=== PATIENT | female | born 1955 | race Caucasian/White ===

== ENCOUNTER → 2018-07-09 | Outpatient (CLI) | payer MEDICARE ==
--- NOTE | 2018-07-09 19:22 | MR ---
EXAMINATION TYPE: MR shoulder RT wo con DATE OF EXAM: 07/09/2018 COMPARISON: None HISTORY: Rt shoulder pain, limited ROM, x 1-2 years CONTRAST: None Multiplanar, multiecho imaging on a 3.0 Pretty magnet is performed through the shoulder. FINDINGS: Long head of the biceps tendon is within the sagittal groove. There is some fluid surroundi ng the distal tendon compatible some mild tendinosis. There is flattening of the tendon. The horizont al portion appears intact. Small joint effusion is present. There is fluid in the subacromial bursa and subdeltoid bursa. There is a 1.2 cm tear through the distal supraspinatus tendon no retraction is evident. Muscle signal appe ars normal. There is acromioclavicular junction hypertrophy. Some downward spurring is present which can contribu te to impingement syndrome. There is a downward sloping acromion which can also contribute to distal impingement syndrome. Glenoid labrum is poorly visualized. There are advanced osteoarthritic degenera tive change at the glenohumeral junction. Humeral head spurring is noted. IMPRESSIONS: 1. Partial tear supraspinatus tendon without tendon or muscle retraction. 2. 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 3. Downward sloping acromion and acromioclavicular junction hypertrophy which can contribute to impin gement syndrome.
== END | disposition home or self-care (01) ==
LOC: RADMRIMAIN 15:14
PROVIDERS: ATTEND Physical Medicine & Rehabilitation
DX: M75.111 Incomplete rotator cuff tear or rupture of right shoulder, not specified as traumatic (principal); M19.011 Primary osteoarthritis, right shoulder; M75.41 Impingement syndrome of right shoulder

== ENCOUNTER 2019-07-04 17:04 | Inpatient (IN) | payer MEDICARE ==
[2019-07-04] MEDS ORDERED: ACETAMINOPHEN TAB 325 MG TAB PO PRN (20:37)
[2019-07-04] MEDS ORDERED: ENALAPRILAT 1.25 MG/ML 1 ML VIAL IVP PRN (20:47)
[2019-07-04] MEDS: SODIUM CHLORIDE 0.9% 1,000 ML IV SCH (21:19)
[2019-07-04] MEDS: MORPHINE SULFATE 2 MG/ML SYRINGE IVP PRN (21:40)
[2019-07-04] MEDS ORDERED: Potassium Replacement Protocol 1 EACH MISC MISCELLANE PRN (23:24)
[2019-07-04] MEDS: AMPICILLIN-SULBACTAM 3 GM in SODIUM CHLORIDE 0.9% 100 ML IVPB SCH (23:42)
[2019-07-04] MEDS: POTASSIUM CHLORIDE ER 20 MEQ TAB.ER PO SCH (23:43)
[2019-07-04] MEDS: HEPARIN SODIUM,PORCINE 5,000 UNIT/ML 1 ML VIAL SQ SCH (23:43)
[2019-07-05] MEDS: HYDROcodone/APAP 10-325MG 1 EACH TAB PO PRN ×3 (00:15→17:00)
[2019-07-05] MEDS ORDERED: HYDROcodone/APAP 10-325MG 1 EACH TAB PO SCH (00:15)
[2019-07-05] MEDS: POTASSIUM CHLORIDE ER 20 MEQ TAB.ER PO SCH (00:51)
[2019-07-05] MEDS: MORPHINE SULFATE 2 MG/ML SYRINGE IVP PRN ×5 (03:05→23:35)
[2019-07-05 03:13] LABS: Basophils % (A) 0 %; Eosinophils # (A) 0.1 k/uL (0-0.7); Eosinophils % (A) 2 %; HCT 34.2 % (34.0-46.0); HGB 11.2 gm/dL (11.4-16.0); Lymphocytes # (A) 1.1 k/uL (1.0-4.8); Lymphocytes % (A) 21 %; MCH 32.7 pg (25.0-35.0); MCHC 32.8 g/dL (31.0-37.0); MCV 99.9 fL (80.0-100.0); Mean Platelet Volume 6.6; Monocytes # (A) 0.4 k/uL (0-1.0); Monocytes % (A) 8 %; Neutrophils # (A) 3.4 k/uL (1.3-7.7); Neutrophils % (A) 66 %; Platelet Count 217 k/uL (150-450); RBC 3.43 m/uL (3.80-5.40); RDW 13.6 % (11.5-15.5); WBC 5.2 k/uL (3.8-10.6)
[2019-07-05 03:20] LABS: ALT 178 U/L (9-52); AST 176 U/L (14-36); African American GFR (CKD) >90 (>60 ml/min/1.73 sqM); Albumin 3.6 g/dL (3.5-5.0); Alkaline Phosphatase 307 U/L (38-126); Anion Gap 6 mmol/L; Blood Urea Nitrogen 7 mg/dL (7-17); Carbon Dioxide 25 mmol/L (22-30); Chloride 108 mmol/L (98-107); Glucose 96 mg/dL (74-99); Potassium 4.1 mmol/L (3.5-5.1); Sodium 139 mmol/L (137-145); Total Bilirubin 1.4 mg/dL (0.2-1.3); Total Protein 6.1 g/dL (6.3-8.2)
[2019-07-05] MEDS: AMPICILLIN-SULBACTAM 3 GM in SODIUM CHLORIDE 0.9% 100 ML IVPB SCH ×4 (05:25→23:35)
[2019-07-05] MEDS: HEPARIN SODIUM,PORCINE 5,000 UNIT/ML 1 ML VIAL SQ SCH ×3 (07:26→23:36)
[2019-07-05] MEDS: PANTOPRAZOLE 40 MG TABLET PO SCH (07:41)
[2019-07-05] MEDS: SODIUM CHLORIDE 0.9% 1,000 ML IV SCH ×3 (07:43→23:37)
[2019-07-05] MEDS ORDERED: NON FORMULARY DRUG (Lansoprazole [Prevacid] 30 MG) PO SCH (09:00)
[2019-07-05 09:04] LABS: ALT 166 U/L (9-52); AST 135 U/L (14-36); African American GFR (CKD) >90 (>60 ml/min/1.73 sqM); Albumin 3.6 g/dL (3.5-5.0); Alkaline Phosphatase 291 U/L (38-126); Anion Gap 7 mmol/L; Blood Urea Nitrogen 6 mg/dL (7-17); Calcium 9.1 mg/dL (8.4-10.2); Carbon Dioxide 22 mmol/L (22-30); Chloride 111 mmol/L (98-107); Glucose 99 mg/dL (74-99); Sodium 140 mmol/L (137-145); Total Bilirubin 1.6 mg/dL (0.2-1.3); Total Protein 6.2 g/dL (6.3-8.2)
--- NOTE | 2019-07-05 12:27 | P.CONS ---
History of Present Illness - Reason for Consult Consult date: 07/05/19 Bile duct obstruction Requesting physician: Maximiliano Galeano - Chief Complaint Abdominal pain - History of Present Illness 64-year-old female with a past medical history of choledocholithiasis requiring ERCP 3-4 years ago outside facility transferred from [place] with symptoms of epigastric right upper quadrant abdominal pain indigestion nausea elevated liver enzymes. 3-4 years ago she was advised to follow up with the general surgeon she never did. Her symptoms have been intermittently ongoing since December but mostly related to reflux indigestion the symptoms of exacerbated over last few days with darker colored urine denies acholic stools. Reports 25 pound weight loss unintentionally over the last several months due to decreased appetite and/or indigestion when she eats. No history of hepatitis or known liver diseases. Denies alcoholism has a few beers 3-4 days a week. No history of IVDA. Liver enzymes prior to transfer total bilirubin 1.8. AST 267. ALT 213. AP 390. INR 0.9. White count 7.9. Hemoglobin 11.9. Platelet 231. Presently total bilirubin is 1.6. AST 135. ALT 166. AP 291. BUN 6. Creatinine 0.4. Afebrile. CT abdomen and pelvis from [place] reported a distended gallbladder with intrahepatic biliary dilatation CBD 1.9 cm with a distal CBD calculus. Review of Systems Constitutional: Denies fever, chills, sweats, weight gain, or loss. HEENT: Negative for migraines, blurred vision or loss, earaches, drainage, tinnitus, oral mucosal lesions, dysphagia, or odynophagia. CARDIAC: Negative for chest pain, arrhythmias, or palpitation. RESPIRATORY: Negative for shortness of breath, hemoptysis, cough, or sputum production. GI: See HPI for pertinent findings. : Negative for hematuria, urgency, frequency, polyuria, or dysuria. GYNc: Denies possibility of . Negative vaginal discharge. MUSCULOSKELETAL: Negative for muscle aches, swelling, arthritis, and arthralgias. NEUROLOGIC: Negative for stroke or TIA. ENDOCRINE: Negative for thyroid problems. SKIN: Negative for rash or itching. PSYCHIATRIC: Negative history for depression and anxiety Past Medical History Past Medical History: No Reported History Additional Past Medical History / Comment(s): arthritis, DDD, scolosis History of Any Multi-Drug Resistant Organisms: None Reported Past Surgical History: Orthopedic Surgery, Tonsillectomy, Tubal Ligation Additional Past Surgical History / Comment(s): colonoscopy, multiple bilat hand surgery, bilat knee surgery. Past Anesthesia/Blood Transfusion Reactions: No Reported Reaction Additional Past Anesthesia/Blood Transfusion Reaction / Comm: no blood transfusi ons Smoking Status: Current every day smoker Past Alcohol Use History: Occasional Additional Past Alcohol Use History / Comment(s): 1/2 ppd smoker - Past Family History Mother Additional Family Medical History / Comment(s): pt states that mother had heart stents Father Additional Family Medical History / Comment(s): esophageal CA Medications and Allergies Home Medications Medication Instructions Recorded Confirmed Type DULoxetine HCL [Cymbalta] 30 mg PO DAILY 07/04/19 07/04/19 History Diclofenac Sodium [Voltaren Gel] 1 applic TOPICAL QID PRN 07/04/19 07/04/19 History HYDROcodone/APAP 10-325MG [[place] 1 tab PO TID 07/04/19 07/04/19 History 10-325] Lansoprazole [Prevacid] 30 mg PO DAILY 07/04/19 07/04/19 History Multivitamins, Thera [Multivitamin 1 tab PO DAILY 07/04/19 07/04/19 History (formulary)] Allergies Allergy/AdvReac Type Severity Reaction Status Date / Time No Known Allergies Allergy Verified 07/04/19 21:06 Physical Exam Vitals: Vital Signs Temp Pulse Resp BP Pulse Ox 07/05/19 05:43 98.0 F 76 16 140/80 100 07/04/19 21:00 99.5 F 82 16 165/88 99 07/04/19 20:11 99.0 F 84 16 183/83 98 Intake and Output 07/04/19 07/05/19 07/05/19 22:59 06:59 14:59 Intake Total 590 1300 Balance 590 1300 Intake: Intake, IV Titration 1300 Amount Ampicillin-Sulbactam 3 gm 200 In Sodium Chloride 0.9% 100 ml @ 200 mls/hr IVPB Q6HR [facility] Rx#:[id number] Sodium Chloride 0.9% 1, 1100 000 ml @ 100 mls/hr IV . Q10H [facility] Rx#:[id number] Oral 590 Other: Voiding Method Toilet Toilet # Voids 1 2 Weight 56.415 kg General appearance: The patient is alert, oriented, in no acute distress. HET: Head is normocephalic and atraumatic. Pupils are equal and reactive. Oropharynx is clear without lesions. Neck: Supple without lymphadenopathy. Trachea midline. Heart: S1 S2. Regular rate and rhythm. Lungs: No crackles or wheezes are heard. Abdomen: Soft, mildly bloated tenderness midepigastrium right upper quadrant with bowel sounds. No peritoneal signs. No palpable organomegaly or masses. Extremities: Normal skin color and turgor. No cyanosis, rash, ulceration, clubbing, or edema. Radial and pedal pulses are 2/4 bilaterally. Neurological: No focal deficits. Strength and sensation are grossly intact. Results CBC & Chem 7: 07/05/19 02:55 07/05/19 08:30 Labs: Abnormal Lab Results - Last 24 Hours (Table) 07/05/19 07/05/19 Range/Units 02:55 02:55 RBC 3.43 L (3.80-5.40) m/uL Hgb 11.2 L (11.4-16.0) gm/dL Chloride 108 H (98-107) mmol/L Total Bilirubin 1.4 H (0.2-1.3) mg/dL AST 176 H (14-36) U/L ALT 178 H (9-52) U/L Alkaline Phosphatase 307 H (38-126) U/L Total Protein 6.1 L (6.3-8.2) g/dL CT scan - abdomen: report reviewed ([place] report reviewed by Dr. Mercer) Assessment and Plan (1) Elevated liver enzymes Narrative/Plan: Acute abdominal pain epigastric right upper quadrant nausea for several months exacerbated over last few days with elevated liver enzymes mild hyp erbilirubinemia CT imaging reporting a distal common bile duct calculus with intraventricular hepatic biliary dilatation with a history of choledocholithiasis 3-4 years ago requiring ERCP. Suspect recurrent choledocholithiasis. Current Visit: Yes Status: Acute Code(s): R74.8 - ABNORMAL LEVELS OF OTHER SERUM ENZYMES SNOMED Code(s): 232852089 (2) Bile duct calculus Current Visit: Yes Status: Acute Code(s): K80.50 - CALCULUS OF BILE DUCT W/O CHOLANGITIS OR CHOLECYST W/O OBST SNOMED Code(s): 36798095 Plan: 1. Nothing by mouth. 2. ERCP. 3. IV antibiotics. 4. General surgical consult recommended. 5. GI prophylaxis. Thank you for this kind referral and the opportunity to participate in the care of your patient. This consultation was discussed with Dr. Mercer. The impression and plan of care have been directed as dictated.
[2019-07-05] MEDS ORDERED: INDOMETHACIN 50MG SUPPOSITORY RECTAL ONE (13:00)
[2019-07-05] MEDS ORDERED: MIDAZOLAM 2 MG/2 ML VIAL ONE (13:49)
[2019-07-05] MEDS ORDERED: IV FLUID CONTINUATION 1,000 ML IV ONE (13:49)
[2019-07-05] MEDS ORDERED: KETAMINE 10 MG/ML 20 ML VIAL ONE (13:49)
[2019-07-05] MEDS ORDERED: GLYCOPYRROLATE 0.2 MG/ML 2 ML VIAL ONE (13:49)
[2019-07-05] MEDS ORDERED: LABETALOL 5 MG/ML VIAL MDV ONE (13:49)
[2019-07-05] MEDS ORDERED: PROPOFOL 10 MG/ML 20 ML VIAL IV ONE (13:49)
[2019-07-05] MEDS ORDERED: IOPAMIDOL-300 50ML BTL MISCELLANE ONE (14:09)
[2019-07-05] MEDS ORDERED: SODIUM CHLORIDE 0.9% 500 ML 500 ML IV ONE (14:25)
--- NOTE | 2019-07-05 14:59 | P.PCN ---
Date of Procedure: 07/05/19 Procedure(s) Performed: Brief history: Patient is a 64 year-old pleasant lady scheduled for an ERCP as part of evaluation of abdominal pain and elevated serum transaminases for the last 2 days' duration. She had CT of the abdomen and pelvis done that showed dilated common bile duct with choledocholithiasis. Procedure performed: ERCP with biliary sphincterotomy, balloon stone extraction, CBD stent placement Preoperative diagnoses: Abdominal pain/elevated LFTs and CBD stones IV sedation per anesthesia: Procedure: After informed consent was obtained from the patient and after the risks benefits and complications including bleeding perforation and pancreatitis explained in detail the patient was brought into the endoscopy unit. The patient was placed in prone position and IV conscious sedation was administered by anesthesia under continuous monitoring. The Olympus side-viewing duodenoscope was then inserted into the mouth and esophagus intubated without any difficulty. The scope was gradually advanced into the stomach and duodenum. The major papilla was identified without any difficulty. Initial cannulation resultedin case of the common bile duct. Upon injection of the dye, the duct was dilated measuring at least 1.5 cm in diameter. There were at least 3 stones that were seen in the distal common bile duct the largest of which measured about 1-1.5 cm. At this time a biliary stent enterotomy was performed over the guidewire and was extended to 1 cm. Following this 11 mm balloon was passed over the guidewire into the proximal CBD and gently withdrawn at least 3 stones were extracted without any difficulty. At this time an occlusion cholangiogram was performed. There was a large stone that was seen in the proximal CBD and a gently maneuvered the balloon to the proximal CBD over the guidewire and inflated and withdrawn. Despite multiple attempts I was not able to extract the stone. Tried for more than half an hour at this time I decided to place a CBD stent. A 7-Mong[place], 5 cm pigtail stent was placed into the proximal CBD with good drainage of the pain. Patient tolerated the procedure well. The pancreatic duct was intentionally not cannulated during the entire procedure Impression: Dilated common bile duct with multiple CBD stones largest of which measuring 1.5 cm in size, status post biliary sphincterotomy and balloon stone extraction. At least 3 stones were extracted but the largest stone which was 1.5 cm in diameter could not be extracted despite multiple attempts. Status post CBD stent placement as described Pancreatic duct intentionally not cannulated Recommendations: The findings of this examination were discussed with the patient as well as a family. We'll start her on clear liquid diet. Repeat labs in the morning. If she is doing well she can be discharged home and will make arrangements for her to have a repeat ERCP for CBD stone extraction at [facility] in the next few weeks. She can have gallbladder surgery after the CBD stones extracted.
--- NOTE | 2019-07-05 15:04 | FL ---
Fluoroscopy History: ERCP, stones ERCP Stones, 48 sec fluoro time, 3 paper films. Sylvie
--- NOTE | 2019-07-05 16:44 | P.GSCN ---
History of Present Illness Consult date: 07/05/19 Reason for Consult: Choledocholithiasis History of present illness: 64-year-old female went to [facility] with right upper quadrant pain. Was found to have elevated liver enzymes. Patient previously had choledocholithiasis but did not follow through with surgical evaluation. Patient had CAT scan performed which showed a distended gallbladder with a distal CBD stone. Patient underwent ERCP today. Stones were removed however t he large stone was impacted. A stent was placed. Feeling well currently. Review of Systems The patient denies any acute changes in vision or hearing, no dysphagia or odyn ophagia, no chest pain or shortness of breath, no dysuria or hematuria, no headache, no runny nose, no rectal bleeding or melena, no unexplained weight loss Past Medical History Past Medical History: No Reported History Additional Past Medical History / Comment(s): arthritis, DDD, scolosis History of Any Multi-Drug Resistant Organisms: None Reported Past Surgical History: Orthopedic Surgery, Tonsillectomy, Tubal Ligation Additional Past Surgical History / Comment(s): colonoscopy, multiple bilat hand surgery, bilat knee surgery. Past Anesthesia/Blood Transfusion Reactions: No Reported Reaction Additional Past Anesthesia/Blood Transfusion Reaction / Comm: no blood transfusions Smoking Status: Current every day smoker Past Alcohol Use History: Occasional Additional Past Alcohol Use History / Comment(s): 1/2 ppd smoker - Past Family History Mother Additional Family Medical History / Comment(s): pt states that mother had heart stents Father Additional Family Medical History / Comment(s): esophageal CA Medications and Allergies Home Medications Medication Instructions Recorded Confirmed Type DULoxetine HCL [Cymbalta] 30 mg PO DAILY 07/04/19 07/04/19 History Diclofenac Sodium [Voltaren Gel] 1 applic TOPICAL QID PRN 07/04/19 07/04/19 History HYDROcodone/APAP 10-325MG [[place] 1 tab PO TID 07/04/19 07/04/19 History 10-325] Lansoprazole [Prevacid] 30 mg PO DAILY 07/04/19 07/04/19 History Multivitamins, Thera [Multivitamin 1 tab PO DAILY 07/04/19 07/04/19 History (formulary)] Allergies Allergy/AdvReac Type Severity Reaction Status Date / Time No Known Allergies Allergy Verified 07/04/19 21:06 Surgical - Exam Vital Signs Temp Pulse Resp BP Pulse Ox 99.0 F 84 16 183/83 98 07/04/19 20:11 07/04/19 20:11 07/04/19 20:11 07/04/19 20:11 07/04/19 20:11 Physical exam: General: Well-developed, well-nourished HEENT: Normocephalic, sclerae icteric Abdomen: Nontender, nondistended Extremities: No edema Neuro: Alert and oriented Results - Labs 07/05/19 02:55 07/05/19 08:30 Abnormal Lab Results - Last 24 Hours (Table) 07/05/19 07/05/19 07/05/19 Range/Units 02:55 02:55 08:30 RBC 3.43 L (3.80-5.40) m/uL Hgb 11.2 L (11.4-16.0) gm/dL Chloride 108 H 111 H (98-107) mmol/L BUN 6 L (7-17) mg/dL Creatinine 0.49 L (0.52-1.04) mg/dL Total Bilirubin 1.4 H 1.6 H (0.2-1.3) mg/dL AST 176 H 135 H (14-36) U/L ALT 178 H 166 H (9-52) U/L Alkaline Phosphatase 307 H 291 H (38-126) U/L Total Protein 6.1 L 6.2 L (6.3-8.2) g/dL Diabetes panel 07/05/19 07/05/19 Range/Units 02:55 08:30 Sodium 139 140 (137-145) mmol/L Potassium 4.1 4.0 (3.5-5.1) mmol/L Chloride 108 H 111 H (98-107) mmol/L Carbon Dioxide 25 22 (22-30) mmol/L BUN 7 6 L (7-17) mg/dL Creatinine 0.56 0.49 L (0.52-1.04) mg/dL Glucose 96 99 (74-99) mg/dL Calcium 9.0 9.1 (8.4-10.2) mg/dL AST 176 H 135 H (14-36) U/L ALT 178 H 166 H (9-52) U/L Alkaline Phosphatase 307 H 291 H (38-126) U/L Total Protein 6.1 L 6.2 L (6.3-8.2) g/dL Albumin 3.6 3.6 (3.5-5.0) g/dL Calcium panel 07/05/19 07/05/19 Range/Units 02:55 08:30 Calcium 9.0 9.1 (8.4-10.2) mg/dL Albumin 3.6 3.6 (3.5-5.0) g/dL Pituitary panel 07/05/19 07/05/19 Range/Units 02:55 08:30 Sodium 139 140 (137-145) mmol/L Potassium 4.1 4.0 (3.5-5.1) mmol/L Chloride 108 H 111 H (98-107) mmol/L Carbon Dioxide 25 22 (22-30) mmol/L BUN 7 6 L (7-17) mg/dL Creatinine 0.56 0.49 L (0.52-1.04) mg/dL Glucose 96 99 (74-99) mg/dL Calcium 9.0 9.1 (8.4-10.2) mg/dL Adrenal panel 07/05/19 07/05/19 Range/Units 02:55 08:30 Sodium 139 140 (137-145) mmol/L Potassium 4.1 4.0 (3.5-5.1) mmol/L Chloride 108 H 111 H (98-107) mmol/L Carbon Dioxide 25 22 (22-30) mmol/L BUN 7 6 L (7-17) mg/dL Creatinine 0.56 0.49 L (0.52-1.04) mg/dL Glucose 96 99 (74-99) mg/dL Calcium 9.0 9.1 (8.4-10.2) mg/dL Total Bilirubin 1.4 H 1.6 H (0.2-1.3) mg/dL AST 176 H 135 H (14-36) U/L ALT 178 H 166 H (9-52) U/L Alkaline Phosphatase 307 H 291 H (38-126) U/L Total Protein 6.1 L 6.2 L (6.3-8.2) g/dL Albumin 3.6 3.6 (3.5-5.0) g/dL Assessment and Plan (1) Bile duct calculus Narrative/Plan: Agree with plans for tertiary care repeat ERCP with stone extraction. Possible discharge tomorrow. We'll follow. Current Visit: Yes Status: Acute Code(s): K80.50 - CALCULUS OF BILE DUCT W/O CHOLANGITIS OR CHOLECYST W/O OBST SNOMED Code(s): 57548709
[2019-07-05 21:46] VITALS: RESP 16
--- NOTE | 2019-07-05 22:39 | P.HPIM ---
History of Present Illness H&P Date: 07/05/19 Chief Complaint: Abdominal pain Patient is a 68-year-old female with a known history of cholelithiasis, degenerative joint disease, ongoing nicotine addiction was initially presented to [facility] with complaints of right upper quadrant abdominal pain and back pain. Patient had CT of the abdominal pelvis showed distended gallbladder with extra hepatic biliary ductal dilation, CBD 1.9 cm with a large calculus. Patient was eventually transferred to [facility] for further evaluation by GI. Patient had history of choledocholithiasis 3-4 years ago. Patient has been having ongoing symptoms since December this year. No fever no chills. Patient does have nausea. No excessive vomiting. Over the last 2 days patient has been having dark-colored urine. Patient has decreased appetite as well. AST 267, ALT 213, was 390 and INR 0.9, WBC 7.9 able to 11.9, platelets 231 and bilirubin level currently is 1.6. Review of Systems Constitutional: Patient denies any fever or chills . No generalized weakness or weight loss. Abdomen: Patient does have nausea. No vomiting. Right upper quadrant abdominal pain and back pain.. Cardiovascular: Patient denies any chest pain or short of breath no palpit ations. Respiratory: patient denied any cough is from production. No shortness of breath Neurologic: Patient denied any numbness or tingling headache. Musculoskeletal: Patient denies any complaints of joint swelling or deformity. Skin: Negative Psychiatric: Negative Endocrine: No heat or cold intolerance. No recent weight gain. Genitourinary: No dysuria or hematuria. All other 14 point ROS negative except the above Past Medical History Past Medical History: No Reported History Additional Past Medical History / Comment(s): arthritis, DDD, scolosis History of Any Multi-Drug Resistant Organisms: None Reported Past Surgical History: Orthopedic Surgery, Tonsillectomy, Tubal Ligation Additional Past Surgical History / Comment(s): colonoscopy, multiple bilat hand surgery, bilat knee surgery. Past Anesthesia/Blood Transfusion Reactions: No Reported Reaction Additional Past Anesthesia/Blood Transfusion Reaction / Comment(s): no blood transfusions Smoking Status: Current every day smoker Past Alcohol Use History: Occasional Additional Past Alcohol Use History / Comment(s): 1/2 ppd smoker - Past Family History Mother Additional Family Medical History / Comment(s): pt states that mother had heart stents Father Additional Family Medical History / Comment(s): esophageal CA Medications and Allergies Home Medications Medication Instructions Recorded Confirmed Type DULoxetine HCL [Cymbalta] 30 mg PO DAILY 07/04/19 07/04/19 History Diclofenac Sodium [Voltaren Gel] 1 applic TOPICAL QID PRN 07/04/19 07/04/19 History HYDROcodone/APAP 10-325MG [[place] 1 tab PO TID 07/04/19 07/04/19 History 10-325] Lansoprazole [Prevacid] 30 mg PO DAILY 07/04/19 07/04/19 History Multivitamins, Thera [Multivitamin 1 tab PO DAILY 07/04/19 07/04/19 History (formulary)] Allergies Allergy/AdvReac Type Severity Reaction Status Date / Time No Known Allergies Allergy Verified 07/04/19 21:06 Physical Exam Vitals: Vital Signs Temp Pulse Resp BP Pulse Ox 07/05/19 09:56 98 F 76 16 140/80 100 07/05/19 05:43 98.0 F 76 16 140/80 100 07/04/19 21:00 99.5 F 82 16 165/88 99 07/04/19 20:11 99.0 F 84 16 183/83 98 Intake and Output 07/04/19 07/05/19 07/05/19 22:59 06:59 14:59 Intake Total 590 1300 Balance 590 1300 Intake: Intake, IV Titration 1300 Amount Ampicillin-Sulbactam 3 gm 200 In Sodium Chloride 0.9% 100 ml @ 200 mls/hr IVPB Q6HR RJ Rx#:[id number] Sodium Chloride 0.9% 1, 1100 000 ml @ 100 mls/hr IV . Q10H [facility] Rx#:[id number] Oral 590 Other: Voiding Method Toilet Toilet # Voids 1 2 Weight 56.415 kg PHYSICAL EXAMINATION: Patient is lying in the bed comfortably, no acute distress, awake alert and oriented.. HEENT: Normocephalic. Neck is supple. Pupils reactive. Nostrils clear. Oral cavity is moist. Ears reveal no drainage. Neck reveals no JVD, carotid bruits, or thyromegaly. CHEST EXAMINATION: Trachea is central. Symmetrical expansion. Lung escobedo clear to auscultation and percussion. CARDIAC: Normal S1, S2 with no gallops. No murmurs ABDOMEN: Soft. Bowel sounds normal. No organomegaly. No abdominal bruits. Extremities: reveal no edema. No clubbing or cyanosis Neurologically awake, alert, oriented x3 with well-coordinated movements. No focal deficits noted Skin: No rash or skin lesions. Psychiatric: Coperative. Nonsuicidal Musculoskeletal: No joint swelling or deformity. Normal range of motion. Results CBC & Chem 7: 07/05/19 02:55 07/05/19 08:30 Labs: Abnormal Lab Results - Last 24 Hours (Table) 07/05/19 07/05/19 07/05/19 Range/Units 02:55 02:55 08:30 RBC 3.43 L (3.80-5.40) m/uL Hgb 11.2 L (11.4-16.0) gm/dL Chloride 108 H 111 H (98-107) mmol/L BUN 6 L (7-17) mg/dL Creatinine 0.49 L (0.52-1.04) mg/dL Total Bilirubin 1.4 H 1.6 H (0.2-1.3) mg/dL AST 176 H 135 H (14-36) U/L ALT 178 H 166 H (9-52) U/L Alkaline Phosphatase 307 H 291 H (38-126) U/L Total Protein 6.1 L 6.2 L (6.3-8.2) g/dL Thrombosis Risk Factor Assmnt - DVT/VTE Prophylaxis DVT/VTE Prophylaxis: Pharmacologic Prophylaxis ordered - Choose All That Apply Any of the Below Risk Factors Present?: Yes Each Factor Represents 1 point: Varicose veins Other Risk Factors: Yes Each Risk Factor Represents 2 Points: Age 61-74 years Thrombosis Risk Factor Assessment Total Risk Factor Score: 3 Thrombosis Risk Factor Assessment Level: Moderate Risk Assessment and Plan Assessment: Hepatic biliary ductal dilatation/choledocholithiasis Abdominal pain Elevated liver enzymes and mild hyperbilirubinemia History of choledocholithiasis Degenerative joint disease Scoliosis Ongoing nicotine addiction History of gallstones. No follow-up with general surgery. Plan: Patient will be continued on IV hydration. Nothing by mouth. General surgery is was consulted. GI is planning for ERCP today. Further recommendations based on the clinical course. Prognosis is guarded. Smoking cessation has been counseled. Time with Patient: Greater than 30
[2019-07-06] MEDS: HYDROcodone/APAP 10-325MG 1 EACH TAB PO PRN ×3 (02:17→18:35)
[2019-07-06] MEDS: MORPHINE SULFATE 2 MG/ML SYRINGE IVP PRN ×5 (03:39→20:53)
[2019-07-06] MEDS: AMPICILLIN-SULBACTAM 3 GM in SODIUM CHLORIDE 0.9% 100 ML IVPB SCH ×3 (05:28→16:55)
[2019-07-06] MEDS: HEPARIN SODIUM,PORCINE 5,000 UNIT/ML 1 ML VIAL SQ SCH ×2 (08:17→16:59)
[2019-07-06] MEDS: PANTOPRAZOLE 40 MG TABLET PO SCH (08:18)
[2019-07-06 08:44] LABS: Basophils % (A) 0 %; Eosinophils # (A) 0.1 k/uL (0-0.7); Eosinophils % (A) 2 %; HCT 34.1 % (34.0-46.0); HGB 10.9 gm/dL (11.4-16.0); Lymphocytes # (A) 0.9 k/uL (1.0-4.8); Lymphocytes % (A) 26 %; MCH 32.5 pg (25.0-35.0); MCV 101.5 fL (80.0-100.0); Macrocytosis Slight; Mean Platelet Volume 7.1; Monocytes # (A) 0.3 k/uL (0-1.0); Monocytes % (A) 8 %; Neutrophils # (A) 2.2 k/uL (1.3-7.7); Neutrophils % (A) 61 %; Platelet Count 189 k/uL (150-450); RBC 3.36 m/uL (3.80-5.40); RDW 13.3 % (11.5-15.5); WBC 3.6 k/uL (3.8-10.6)
[2019-07-06 09:01] LABS: ALT 117 U/L (9-52); AST 55 U/L (14-36); African American GFR (CKD) >90 (>60 ml/min/1.73 sqM); Albumin 3.4 g/dL (3.5-5.0); Alkaline Phosphatase 232 U/L (38-126); Anion Gap 8 mmol/L; Blood Urea Nitrogen 4 mg/dL (7-17); Calcium 8.9 mg/dL (8.4-10.2); Carbon Dioxide 25 mmol/L (22-30); Chloride 106 mmol/L (98-107); Glucose 166 mg/dL (74-99); Potassium 3.4 mmol/L (3.5-5.1); Sodium 139 mmol/L (137-145); Total Bilirubin 0.9 mg/dL (0.2-1.3)
--- NOTE | 2019-07-06 09:41 | P.PN ---
Subjective Progress Note Date: 07/06/19 Principal diagnosis: Choledocholithiasis Patient doing well today. Pain is improved. All of her liver enzymes are improved as well. Tolerating diet. Objective - Vital Signs Vital signs: Vital Signs Temp 98.5 F 07/06/19 05:00 Pulse 71 07/06/19 05:00 Resp 16 07/06/19 05:00 BP 132/69 07/06/19 05:00 Pulse Ox 98 07/06/19 05:00 Intake & Output 07/05/19 07/06/19 07/06/19 18:59 06:59 18:59 Intake Total 1300 1840 Balance 1300 1840 Intake: IV 500 Intake, IV Titration 800 1000 Amount Ampicillin-Sulbactam 3 gm 100 In Sodium Chloride 0.9% 100 ml @ 200 mls/hr IVPB Q6HR RJ Rx#:[id number] Sodium Chloride 0.9% 1, 700 1000 000 ml @ 100 mls/hr IV . Q10H RJ Rx#:[id number] Oral 840 Other: Voiding Method Toilet Toilet # Voids 1 - Exam Abdomen: Soft, nondistended, mild epigastric tenderness - Labs CBC & Chem 7: 07/06/19 08:21 07/06/19 08:21 Labs: Abnormal Lab Results - Last 24 Hours (Table) 07/06/19 07/06/19 Range/Units 08:21 08:21 WBC 3.6 L (3.8-10.6) k/uL RBC 3.36 L (3.80-5.40) m/uL Hgb 10.9 L (11.4-16.0) gm/dL MCV 101.5 H (80.0-100.0) fL Lymphocytes # 0.9 L (1.0-4.8) k/uL Potassium 3.4 L (3.5-5.1) mmol/L BUN 4 L (7-17) mg/dL Glucose 166 H (74-99) mg/dL AST 55 H (14-36) U/L ALT 117 H (9-52) U/L Alkaline Phosphatase 232 H (38-126) U/L Total Protein 6.0 L (6.3-8.2) g/dL Albumin 3.4 L (3.5-5.0) g/dL Assessment and Plan (1) Bile duct calculus Narrative/Plan: Patient doing well. Continue advancing diet. May discharge. Outpatient follow-up at [facility]. Follow-up with myself for definitive cholecystectomy following that. Current Visit: Yes Status: Acute Code(s): K80.50 - CALCULUS OF BILE DUCT W/O CHOLANGITIS OR CHOLECYST W/O OBST SNOMED Code(s): 59797632
[2019-07-06 10:03] LABS: Amylase 110 U/L (30-110)
[2019-07-06] MEDS: POTASSIUM CHLORIDE ER 20 MEQ TAB.ER PO SCH ×2 (10:45→12:11)
[2019-07-06] MEDS: SODIUM CHLORIDE 0.9% 1,000 ML IV SCH ×2 (12:11→23:23)
--- NOTE | 2019-07-06 14:07 | PN ---
PROGRESS NOTE DATE OF SERVICE: 07/06/2019 The patient is a 64-year-old pleasant white female admitted to the hospital with abdominal pain and elevated LFTs and jaundice. CT of the abdomen showed CBD stone. She underwent an ERCP with biliary sphincterotomy and balloon stone extraction as well as CBD stent placement. The ERCP revealed multiple CBD stones, most of which were removed, but there was a large 1.5 cm stone that could not be removed and, hence, a biliary stent was placed. The patient is doing much better this morning. She still has some epigastric discomfort, some nausea and vomiting. PHYSICAL EXAMINATION: Appears comfortable, no apparent distress. VITAL SIGNS: Stable. Blood pressure is 132/69, pulse is 71, temperature 98.5. HEENT: Unremarkable. Conjunctivae pink. Sclerae anicteric. Oral cavity, no lesions. NECK: No JVD. No lymph node enlargement. CHEST: Clear to auscultation. HEART: Regular rate and rhythm. ABDOMEN: Soft. Bowel sounds are positive. No organomegaly. EXTREMITIES: No pedal edema. SKIN: No rashes. NEUROLOGIC: Alert and oriented x3. No focal deficits. LABS: Done from today, bilirubin is down to 0.9, AST 117, ALT 55, alkaline phosphatase 232, lipase is 622 and amylase is 110. WBC 3.6, hemoglobin 10.9. IMPRESSION: 1. Choledocholithiasis, status post ERCP with biliary sphincterotomy, balloon stone extraction and CBD stent placement as one of the large stones could not be extracted. Several small stones were extracted. 2. Gallstones for which Dr. Wall is following the patient. 3. Mild elevation of lipase consistent with mild pancreatitis, possibly post ERCP related. RECOMMENDATIONS: 1. Continue with a clear liquid diet. 2. Continue with broad-spectrum antibiotics. 3. Advance diet gradually. 4. If symptoms improve, she can be discharged home tomorrow with outpatient followup in 2 weeks. I had a lengthy discussion with the patient as well as the family who were at the bedside that we will plan on sending her to [facility] for a CBD stone extraction in 2-3 weeks following which she can have gallbladder surgery done. Thank you for this consultation. MMODL / IJN: [id number] /
--- NOTE | 2019-07-06 23:12 | P.PN ---
Subjective Progress Note Date: 07/06/19 Principal diagnosis: Choledocholithiasis status post ERCP and stone extraction Patient is a 68-year-old female with a known history of cholelithiasis, degenerative joint disease, ongoing nicotine addiction was initially presented to [facility] with complaints of right upper quadrant abdominal pain and back pain. Patient had CT of the abdominal pelvis showed distended gallbladder with extra hepatic biliary ductal dilation, CBD 1.9 cm with a large calculus. Patient was eventually transferred to [facility] for further evaluation by GI. Patient had history of choledocholithiasis 3-4 years ago. Patient has been having ongoing symptoms since December this year. No fever no chills. Patient does have nausea. No excessive vomiting. Over the last 2 days patient has been having dark-colored urine. Patient has decreased appetite as well. AST 267, ALT 213, was 390 and INR 0.9, WBC 7.9 able to 11.9, platelets 231 and bilirubin level currently is 1.6. 07/06/2019 Patient had ERCP done yesterday with sphincterotomy and stone extraction. There is still one large stone left. Patient was recommended to follow with outpatient for repeat ERCP. Otherwise patient is still complaining of abdominal pain today. Liver enzymes are trending down. Lipase level is elevated to 600. No fever no chills. No nausea vomiting. No chest pain or shortness of breath. No headache or dizziness or lightheadedness. Patient is able to ambulate in the hallway. Current medications reviewed. Objective - Vital Signs Vital signs: Vital Signs Temp 97.9 F 07/06/19 12:21 Pulse 67 07/06/19 12:21 Resp 16 07/06/19 12:21 BP 167/81 07/06/19 12:21 Pulse Ox 99 07/06/19 12:21 Intake & Output 07/05/19 07/06/19 07/06/19 18:59 06:59 18:59 Intake Total 1300 1840 900 Balance 1300 1840 900 Intake: IV 500 Intake, IV Titration 800 1000 900 Amount Ampicillin-Sulbactam 3 gm 100 100 In Sodium Chloride 0.9% 100 ml @ 200 mls/hr IVPB Q6HR RJ Rx#:[id number] Sodium Chloride 0.9% 1, 700 1000 800 000 ml @ 100 mls/hr IV . Q10H RJ Rx#:[id number] Oral 840 Other: Voiding Method Toilet Toilet Toilet # Voids 1 - Exam PHYSICAL EXAMINATION: Patient is lying in the bed comfortably, no acute distress, awake alert and oriented.. HEENT: Normocephalic. Neck is supple. Pupils reactive. Nostrils clear. Oral cavity is moist. Ears reveal no drainage. Neck reveals no JVD, carotid bruits, or thyromegaly. CHEST EXAMINATION: Trachea is central. Symmetrical expansion. Lung escobedo clear to auscultation and percussion. CARDIAC: Normal S1, S2 with no gallops. No murmurs ABDOMEN: Soft. Mild epigastric tenderness. Bowel sounds normal. No organomegaly. No abdominal bruits. Extremities: reveal no edema. No clubbing or cyanosis Neurologically awake, alert, oriented x3 with well-coordinated movements. No focal deficits noted Skin: No rash or skin lesions. Psychiatric: Coperative. Nonsuicidal Musculoskeletal: No joint swelling or deformity. Normal range of motion. - Labs CBC & Chem 7: 07/06/19 08:21 07/06/19 08:21 Labs: Abnormal Lab Results - Last 24 Hours (Table) 07/06/19 07/06/19 07/06/19 Range/Units 08:21 08:21 08:21 WBC 3.6 L (3.8-10.6) k/uL RBC 3.36 L (3.80-5.40) m/uL Hgb 10.9 L (11.4-16.0) gm/dL MCV 101.5 H (80.0-100.0) fL Lymphocytes # 0.9 L (1.0-4.8) k/uL Potassium 3.4 L (3.5-5.1) mmol/L BUN 4 L (7-17) mg/dL Glucose 166 H (74-99) mg/dL AST 55 H (14-36) U/L ALT 117 H (9-52) U/L Alkaline Phosphatase 232 H (38-126) U/L Total Protein 6.0 L (6.3-8.2) g/dL Albumin 3.4 L (3.5-5.0) g/dL Lipase 627 H (23-300) U/L Assessment and Plan Assessment: Hepatic biliary ductal dilatation/choledocholithiasis. Status post ERCP Mild acute pancreatitis Abdominal pain Elevated liver enzymes and mild hyperbilirubinemia History of choledocholithiasis Degenerative joint disease Scoliosis Ongoing nicotine addiction History of gallstones. No follow-up with general surgery. Plan: Patient will be continued on IV hydration. Empiric antibiotics. GI is following. Monitor liver enzymes and lipase level.. Further recommendations based on the clinical course. Prognosis is guarded. Smoking cessation has been counseled. Time with Patient: Greater than 30
[2019-07-07] MEDS: HEPARIN SODIUM,PORCINE 5,000 UNIT/ML 1 ML VIAL SQ SCH ×2 (00:33→08:23)
[2019-07-07] MEDS: MORPHINE SULFATE 2 MG/ML SYRINGE IVP PRN ×3 (00:34→08:32)
[2019-07-07] MEDS: AMPICILLIN-SULBACTAM 3 GM in SODIUM CHLORIDE 0.9% 100 ML IVPB SCH ×2 (00:34→04:47)
[2019-07-07] MEDS: HYDROcodone/APAP 10-325MG 1 EACH TAB PO PRN ×2 (02:05→11:11)
[2019-07-07 05:21] VITALS: BP 155/82; PULSE 63; TEMP 98.6
[2019-07-07 06:07] LABS: Basophils % (A) 0 %; Eosinophils # (A) 0.2 k/uL (0-0.7); Eosinophils % (A) 5 %; HCT 29.8 % (34.0-46.0); HGB 9.9 gm/dL (11.4-16.0); Lymphocytes # (A) 1.4 k/uL (1.0-4.8); Lymphocytes % (A) 46 %; MCH 33.3 pg (25.0-35.0); MCHC 33.3 g/dL (31.0-37.0); Monocytes # (A) 0.3 k/uL (0-1.0); Monocytes % (A) 10 %; Neutrophils # (A) 1.1 k/uL (1.3-7.7); Neutrophils % (A) 35 %; Platelet Count 169 k/uL (150-450); RBC 2.98 m/uL (3.80-5.40); RDW 13.5 % (11.5-15.5); WBC 3.1 k/uL (3.8-10.6)
[2019-07-07 06:20] LABS: ALT 87 U/L (9-52); AST 33 U/L (14-36); African American GFR (CKD) >90 (>60 ml/min/1.73 sqM); Alkaline Phosphatase 189 U/L (38-126); Anion Gap 7 mmol/L; Blood Urea Nitrogen 4 mg/dL (7-17); Calcium 8.6 mg/dL (8.4-10.2); Carbon Dioxide 24 mmol/L (22-30); Chloride 109 mmol/L (98-107); Glucose 89 mg/dL (74-99); Potassium 3.6 mmol/L (3.5-5.1); Sodium 140 mmol/L (137-145); Total Bilirubin 0.5 mg/dL (0.2-1.3); Total Protein 5.3 g/dL (6.3-8.2)
[2019-07-07] MEDS: PANTOPRAZOLE 40 MG TABLET PO SCH (08:23)
[2019-07-07] MEDS: SODIUM CHLORIDE 0.9% 1,000 ML IV SCH (11:15)
--- NOTE | 2019-07-07 11:35 | P.PN ---
Subjective Progress Note Date: 07/07/19 Principal diagnosis: Choledocholithiasis Patient doing well today. Pain yesterday apparently got a little worse as the day went on. She is hoping to go home today. Labs improved. Objective - Vital Signs Vital signs: Vital Signs Temp 98.6 F 07/07/19 05:00 Pulse 63 07/07/19 05:00 Resp 16 07/07/19 05:00 BP 155/82 07/07/19 05:00 Pulse Ox 97 07/07/19 05:00 Intake & Output 07/06/19 07/07/19 07/07/19 18:59 06:59 18:59 Intake Total 900 1840 Balance 900 1840 Intake: Intake, IV Titration 900 1000 Amount Ampicillin-Sulbactam 3 gm 100 In Sodium Chloride 0.9% 100 ml @ 200 mls/hr IVPB Q6HR RJ Rx#:[id number] Sodium Chloride 0.9% 1, 800 1000 000 ml @ 100 mls/hr IV . Q10H RJ Rx#:[id number] Oral 840 Other: Voiding Method Toilet Toilet # Voids 1 - Exam Abdomen: Soft, nondistended, mild epigastric tenderness - Labs CBC & Chem 7: 07/07/19 05:40 07/07/19 05:40 Labs: Abnormal Lab Results - Last 24 Hours (Table) 07/07/19 07/07/19 Range/Units 05:40 05:40 WBC 3.1 L (3.8-10.6) k/uL RBC 2.98 L (3.80-5.40) m/uL Hgb 9.9 L (11.4-16.0) gm/dL Hct 29.8 L (34.0-46.0) % Neutrophils # 1.1 L (1.3-7.7) k/uL Chloride 109 H (98-107) mmol/L BUN 4 L (7-17) mg/dL Creatinine 0.50 L (0.52-1.04) mg/dL ALT 87 H (9-52) U/L Alkaline Phosphatase 189 H (38-126) U/L Total Protein 5.3 L (6.3-8.2) g/dL Albumin 3.0 L (3.5-5.0) g/dL Lipase 410 H (23-300) U/L Assessment and Plan (1) Bile duct calculus Narrative/Plan: Patient doing well at this time. Stable for discharge. Follow-up outpatient for cholecystectomy. Current Visit: Yes Status: Acute Code(s): K80.50 - CALCULUS OF BILE DUCT W/O CHOLANGITIS OR CHOLECYST W/O OBST SNOMED Code(s): 60639067
--- NOTE | 2019-07-07 11:53 | PN ---
PROGRESS NOTE DATE OF SERVICE: July 07, 2019 Patient is a 64 -year-old pleasant white female admitted to the hospital with abdominal pain, elevated LFTs, and CBD stone. She underwent an ERCP 2 days ago that showed multiple CBD stones. She underwent biliary sphincterotomy and balloon stone extraction of multiple stones. However, there was 1 large stone that could not be extracted completely and hence a CBD stent was placed. The patient is doing much better. She had some epigastric pain yesterday, which is resolving. On a clear liquid diet, tolerating well. PHYSICAL EXAMINATION: Appears comfortable in no apparent distress. Vital signs stable. Blood pressure 155/82, pulse rate 63, temperature 98.6. HEENT examination unremarkable. Conjunctivae pink. Sclerae anicteric. Oral cavity no lesions. Neck no JVD. No lymph node enlargement. Chest was clear to auscultation. HEART: Regular rate and rhythm. Abdomen was soft. There was very minimal tenderness in the epigastric area. Bowel sounds are positive. No organomegaly. Extremities: No pedal edema. Skin no rashes. NEUROLOGIC: Alert and oriented x3. No focal deficits. LABS: Done today: WBC 3.1, hemoglobin 9.9, platelets normal. T-bilirubin is normal. AST 33, ALT 87, alkaline phosphatase 183, lipase is 410. IMPRESSION: 1. Choledocholithiasis, status post ERCP with biliary sphincterotomy and balloon extraction of multiple stones except one large stone and hence CBD stent placed 2 days ago. Patient doing much better. 2. Epigastric pain, resolving. 3. Gallstones for which Dr. Wall following the patient closely. RECOMMENDATIONS: 1. Advance diet as tolerated. 2. Decrease pain medications. 3. If patient able to tolerate the diet, she can be discharged home today with outpatient followup in 2 weeks. Thank you for this consultation. MMODL / IJN: [id number] /
--- NOTE | 2019-07-10 03:10 | CDI ---
Documentation Clarification Form Date: 07/10/19 From: Raghu Justice Phone: call [phone] Admit Date: 07/04/2019 7:15:00 PM Patient Name: Santa Solo Visit Number: [id number] Discharge Date: 07/07/2019 11:35:00 AM ATTENTION: The Clinical Documentation Specialists (CDI) and [facility] Coding Staff appreciate your assistance in clarifying documentation. Please respond to the clarification below the line at the bottom and electronically sign. The CDI & [facility] Coding staff will review the response and follow-up if needed. Please note: Queries are made part of the Legal Health Record. If you have any questions, please contact the author of this message via ITS. Dr. Maximiliano Galeano, Mild Acute pancreatitis is documented in the 07/06 Progress note. 07/[address] Sylvie murillo stated as "Mild elevation of lipase consistent with mild pancreatitis, possibly post ERCP related." Patients Admitting Diagnosis: Bile Duct Calculus. Post-Operative Diagnosis:calculus and Pancreatitis. Procedure performed: ERCP with Sphincterotomy. History/Risk Factors: Gallstones, choledocholithiasis Treatment: ERCP with stone removal. Consults: Dr. Sylvie Murillo. In order to accurately reflect this patients severity of illness, please clarify if Acute Pancreatitis is the result of the surgical procedure? Yes No Other, please specify Unable to determine Yes MTDD
--- NOTE | 2019-07-14 23:17 | P.DS ---
Providers Date of admission: 07/04/19 19:15 Expected date of discharge: 07/07/19 Attending physician: Maximiliano Galeano Consults: 07/04/19 20:56 Consult Physician Urgent Consulting Provider: Albaro Fritz Consult Reason/Comments: biliary duct stone obstruction Do you want consulting provider notified?: Yes Placement Type Exists?: Yes 07/05/19 09:32 Consult Physician Stat Consulting Provider: iWllian Wall Consult Reason/Comments: gallbladder concerns Do you want consulting provider notified?: Yes Primary care physician: Stated None Hospital Course: Discharge Diagnosis Hepatic biliary ductal dilatation/choledocholithiasis. Status post ERCP Mild acute pancreatitis Abdominal pain Elevated liver enzymes and mild hyperbilirubinemia History of choledocholithiasis Degenerative joint disease Scoliosis Ongoing nicotine addiction History of gallstones. No follow-up with general surgery. Hospital course Patient is a 68-year-old female with a known history of cholelithiasis, degenerative joint disease, ongoing nicotine addiction was initially presented to [facility] with complaints of right upper quadrant abdominal pain and back pain. Patient had CT of the abdominal pelvis showed distended gallbladder with extra hepatic biliary ductal dilation, CBD 1.9 cm with a large calculus. Patient was eventually transferred to [facility] f or further evaluation by GI. Patient had history of choledocholithiasis 3-4 years ago. Patient has been having ongoing symptoms since December this year. No fever no chills. Patient does have nausea. No excessive vomiting. Over the last 2 days patient has been having dark-colored urine. Patient has decreased appetite as well. AST 267, ALT 213, was 390 and INR 0.9, WBC 7.9 able to 11.9, platelets 231 and bilirubin level currently is 1.6. 07/06/2019 Patient had ERCP done yesterday with sphincterotomy and stone extraction. There is still one large stone left. Patient was recommended to follow with outpatient for repeat ERCP. Otherwise patient is still complaining of abdominal pain today. Liver enzymes are trending down. Lipase level is elevated to 600. No fever no chills. No nausea vomiting. No chest pain or shortness of breath. No headache or dizziness or lightheadedness. Patient is able to ambulate in the hallway. 07/07/2019 Patient's abdominal pain is much improved. Tolerating oral diet. Laboratory data within normal limits and lipase level is improving as well. No complaints of chest pain or shortness of breath. No nausea vomiting or abdominal pain. Patient is cleared from GI and surgical standpoint. He was recommended to follow-up with GI clinic and possible ERCP again at tertiary care facility. PHYSICAL EXAMINATION: Patient is lying in the bed comfortably, no acute distress, awake alert and oriented.. HEENT: Normocephalic. Neck is supple. Pupils reactive. Nostrils clear. Oral cavity is moist. Ears reveal no drainage. Neck reveals no JVD, carotid bruits, or thyromegaly. CHEST EXAMINATION: Trachea is central. Symmetrical expansion. Lung escobedo clear to auscultation and percussion. CARDIAC: Normal S1, S2 with no gallops. No murmurs ABDOMEN: Soft. no tenderness. Bowel sounds normal. No organomegaly. No abdominal bruits. Extremities: reveal no edema. No clubbing or cyanosis Neurologically awake, alert, oriented x3 with well-coordinated movements. No focal deficits noted Skin: No rash or skin lesions. Psychiatric: Coperative. Nonsuicidal Musculoskeletal: No joint swelling or deformity. Normal range of motion. Vital Signs Temp 98.6 F 07/07/19 05:00 Pulse 63 07/07/19 05:00 Resp 16 07/07/19 05:00 BP 155/82 07/07/19 05:00 Pulse Ox 97 07/07/19 05:00 Intake & Output 07/06/19 07/07/19 07/07/19 18:59 06:59 18:59 Intake Total 900 1840 Balance 900 1840 Intake: Intake, IV Titration 900 1000 Amount Ampicillin-Sulbactam 3 gm 100 In Sodium Chloride 0.9% 100 ml @ 200 mls/hr IVPB Q6HR RJ Rx#:[id number] Sodium Chloride 0.9% 1, 800 1000 000 ml @ 100 mls/hr IV . Q10H RJ Rx#:[id number] Oral 840 Other: Voiding Method Toilet Toilet # Voids 1 Patient Condition at Discharge: Good Plan - Discharge Summary Discharge Rx Participant: Yes New Discharge Prescriptions: Continue Multivitamins, Thera [Multivitamin (formulary)] 1 tab PO DAILY Lansoprazole [Prevacid] 30 mg PO DAILY HYDROcodone/APAP 10-325MG [[place] 10-325] 1 tab PO TID DULoxetine HCL [Cymbalta] 30 mg PO DAILY Diclofenac Sodium [Voltaren Gel] 1 applic TOPICAL QID PRN PRN Reason: RIGHT HAND/SHOULDER PAIN Discharge Medication List DULoxetine HCL [Cymbalta] 30 mg PO DAILY 07/04/19 [History] Diclofenac Sodium [Voltaren Gel] 1 applic TOPICAL QID PRN 07/04/19 [History] HYDROcodone/APAP 10-325MG [[place] 10-325] 1 tab PO TID 07/04/19 [History] Lansoprazole [Prevacid] 30 mg PO DAILY 07/04/19 [History] Multivitamins, Thera [Multivitamin (formulary)] 1 tab PO DAILY 07/04/19 [History] Follow up Appointment(s)/Referral(s): Willian Wall MD [Medical Doctor] - As Needed Lidia Mercer MD [STAFF PHYSICIAN] - 07/25/19 9:30 am (Patient will be going to office in [place]. ) Patient Instructions/Handouts: Low Fat Diet (DC), Endoscopic Biliary Stent Placement (DC), ERCP (Endoscopic Retrograde Cholangiopancreatography) (DC) Discharge Disposition: HOME SELF-CARE
== END 2019-07-07 11:35 | disposition home or self-care (01) | DRG 444 ==
LOC: 3NMEDONC 19:15
PROVIDERS: ADMIT Internal Medicine; ATTEND Internal Medicine
PROC: BF141ZZ Fluoroscopy of Gallbladder, Bile Ducts and Pancreatic Ducts using Low Osmolar Contrast (ICD-10-PCS; principal; 2019-07-05 07:50)
PROC: 0F798DZ Dilation of Common Bile Duct with Intraluminal Device, Via Natural or Artificial Opening Endoscopic (ICD-10-PCS; principal; 2019-07-05 07:50)
PROC: 0FC98ZZ Extirpation of Matter from Common Bile Duct, Via Natural or Artificial Opening Endoscopic (ICD-10-PCS; principal; 2019-07-05 07:50)
DX: K80.70 Calculus of gallbladder and bile duct without cholecystitis without obstruction (principal); K85.90 Acute pancreatitis without necrosis or infection, unspecified; K91.89 Other postprocedural complications and disorders of digestive system; M19.90 Unspecified osteoarthritis, unspecified site; M41.9 Scoliosis, unspecified; F17.200 Nicotine dependence, unspecified, uncomplicated; K83.8 Other specified diseases of biliary tract; K21.9 Gastro-esophageal reflux disease without esophagitis; Z90.89 Acquired absence of other organs; Z98.890 Other specified postprocedural states; Z98.51 Tubal ligation status; Z80.0 Family history of malignant neoplasm of digestive organs; Z79.899 Other long term (current) drug therapy; Z87.19 Personal history of other diseases of the digestive system
CPT/HCPCS: 43212; 43262; 43264; 74330; 80053; 82150; 83690; 84484; 85025